=== PATIENT | male | born 1965 | race Caucasian/White ===

== ENCOUNTER 2022-02-27 10:43 | Day surgery (SDC) | payer BC ==
[~2022-02-27 10:43] MED LIST: Lactated Ringers 1,000 ML IV SCH; fentaNYL 100 MCG/2 ML SDV ONE
[2022-02-27] MEDS ORDERED: propofoL 50 ML ONE (12:42)
[2022-02-27] MEDS ORDERED: Lactated Ringers 1,000 ML IV SCH (14:00)
== END 2022-02-27 14:41 | disposition home or self-care (01) ==
LOC: MW.SDS 10:43
PROVIDERS: ATTEND Surgery
DX: Z12.11 Encounter for screening for malignant neoplasm of colon (principal); D12.2 Benign neoplasm of ascending colon; E78.00 Pure hypercholesterolemia, unspecified; Z72.89 Other problems related to lifestyle; Z90.49 Acquired absence of other specified parts of digestive tract; Z79.899 Other long term (current) drug therapy
CPT/HCPCS: 45380; J2704; J3010; J7120; 00812